=== PATIENT | male | born 1970 | race Caucasian/White ===

== ENCOUNTER 2019-03-05 13:33 | Emergency (ER) | payer BC ==
[2019-03-05] MEDS ORDERED: KETOROLAC 30 MG/ML VIAL IVP STA ×2 (13:42→14:02)
[2019-03-05] MEDS ORDERED: ONDANSETRON ODT 4 MG TABLET TL STA (13:42)
[2019-03-05] MEDS ORDERED: KETOROLAC 30 MG/ML VIAL IM STA (13:51)
[2019-03-05 14:03] LABS: BASOPHILS # (AUTO) 0.1 10^3/uL (0.0-0.1); BASOPHILS % (AUTO) 1.2 %; EOSINOPHILS # (AUTO) 0.5 10^3/uL (0.0-0.7); EOSINOPHILS % (AUTO) 6.1 %; LYMPHOCYTES # (AUTO) 2.9 10^3/uL (1.5-3.5); LYMPHOCYTES % (AUTO) 38.5 %; MEAN CORPUSCULAR HEMOGLOBIN 30.8 pg (27.0-31.0); MEAN CORPUSCULAR HGB CONC 34.2 g/dL (32.0-36.0); MEAN CORPUSCULAR VOLUME 90.2 fL (80.0-94.0); MEAN PLATELET VOLUME 10.2 fL (7.4-11.4); MONOCYTES # (AUTO) 0.6 10^3/uL (0.0-1.0); MONOCYTES % (AUTO) 7.5 %; NEUTROPHILS # (AUTO) 3.5 10^3/uL (1.5-6.6); NEUTROPHILS % (AUTO) 46.4 %; PLT - PLATELET COUNT 216 10^3/uL (130-450); RED BLOOD COUNT 5.19 10^6/uL (4.70-6.10); RED CELL DISTRIBUTION WIDTH 12.3 % (12.0-15.0); WHITE BLOOD COUNT 7.5 x10^3/uL (4.8-10.8)
[2019-03-05] MEDS ORDERED: HYDROmorphone 1 MG/ML CARPUJECT IVP STA (14:10)
[2019-03-05] MEDS ORDERED: SODIUM CHLORIDE 0.9% 1,000 ML IV ONE (14:10)
[2019-03-05 14:24] LABS: CREATININE 1.1 mg/dL (0.6-1.2)
[2019-03-05 14:25] LABS: ALBUMIN 4.8 g/dL (3.2-5.5); ALBUMIN/GLOBULIN RATIO 1.5 (1.0-2.2); BILIRUBIN,TOTAL 2.3 mg/dL (0.2-1.0); CALCIUM 9.6 mg/dL (8.5-10.3)
--- NOTE | 2019-03-05 14:45 | CT Report ---
Reason: RUQ/RLQ pain Procedure Date: 03/05/2019 Accession Number: [id number] / [id number] Procedure: CT - Abdomen/Pelvis WO CPT Code: FULL RESULT: EXAM: CT ABDOMEN AND PELVIS EXAM DATE: 03/05/2019 02:06 PM. CLINICAL HISTORY: RUQ/RLQ pain. COMPARISONS: None. TECHNIQUE: Routine axial helical CT imaging was performed through the abdomen and pelvis without IV contrast. Reconstructions: Coronal and sagittal. In accordance with CT protocol optimization, one or more of the following dose reduction techniques were utilized for this exam: automated exposure control, adjustment of mA and/or KV based on patient size, or use of iterative reconstructive technique. FINDINGS: Lung Bases: Unremarkable. Right Kidney/Ureter: There is mild right hydronephrosis, hydroureter, and perinephric stranding secondary to a 0.3 cm stone within the low right ureter. Left Kidney/Ureter: No stones, hydronephrosis, or hydroureter. No perinephric fat stranding. Other Solid Organs: Noncontrast images of the solid organs are grossly unremarkable. Gallbladder/Bile Ducts: Unremarkable. Peritoneal Cavity: No free fluid, free air or bere adenopathy. Bowel is grossly unremarkable. Pelvic Organs: No bladder stones or wall thickening. Noncontrast images of the visualized pelvic organs are unremarkable. Vasculature: Unremarkable. Other: None. IMPRESSION: There is mild right hydronephrosis, hydroureter, and perinephric stranding secondary to a 0.3 cm stone within the low right ureter. RADIA
--- NOTE | 2019-03-05 15:11 | ED Physician Documentation ---
PD HPI ABD PAIN - Stated complaint Stated Complaint: ABD PX - Chief complaint Chief Complaint: Abd Pain - History obtained from History obtained from: Patient, Family - History of Present Illness Timing - onset: Yesterday Timing - duration: Days (1) Timing - details: Abrupt onset Severity Comments: severe right flank pain Quality: Sharp Location: RUQ, RLQ, Other (right flank) Radiation: Other (right groin), Upper back Improved by: Other (nothing) Worsened by: Other (nothing, pt can't get comfortable) Associated symptoms: Nausea, Vomiting. No: Fever, Hematemesis, Diarrhea, Constipation, Melena, Hematochezia, Dysuria, Hematuria Similar symptoms before: Has not had sx before Recently seen: Not recently seen - Treatment prior to arrival Treatment prior to arrival: none - Additional information Additional information: Yesterday the pain came and went on its own after a sudden sharp brief pain had occurred in his RUQ Review of Systems Ten Systems: 10 systems reviewed and negative Constitutional: denies: Fever, Chills Cardiac: denies: Chest pain / pressure Respiratory: denies: Dyspnea GI: reports: Abdominal Pain, Nausea, Vomiting : denies: Dysuria, Frequency, Hematuria Skin: reports: Reviewed and negative Musculoskeletal: reports: Reviewed and negative Immunocompromised: reports: Reviewed and negative PD PAST MEDICAL HISTORY - Past Medical History Past Medical History: No - Past Surgical History Past Surgical History: Yes General: Appendectomy - Present Medications Home Medications: Ambulatory Orders Medication Instructions Recorded Confirmed Hydrocodone/Acetaminophen 1 - 2 each PO Q6H PRN #12 tablet 03/05/19 [Hydrocodon-Acetaminophen 5-325] Ondansetron Odt [Zofran] 4 mg TL Q6H PRN #10 tablet 03/05/19 - Allergies Allergies/Adverse Reactions: Allergies Allergy/AdvReac Type Severity Reaction Status Date / Time No Known Drug Allergies Allergy Verified 03/05/19 13:41 - Social History Does the pt smoke?: No Smoking Status: Never smoker Does the pt drink ETOH?: Yes Does the pt have substance abuse?: No - Immunizations Immunizations are current?: Yes - POLST Patient has POLST: No PD ED PE NORMAL - Vitals Vital signs reviewed: Yes - General General: Alert and oriented X 3, Other (moderate distress, writhing in bed) - HEENT HEENT: Atraumatic - Neck Neck: Supple, no meningeal sign - Cardiac Cardiac: RRR - Respiratory Respiratory: No respiratory distress - Abdomen Abdomen: Soft, Non tender, Non distended - Male Male : Deferred - Rectal Rectal: Deferred - Derm Derm: Normal color, Warm and dry, No rash - Extremities Extremities: No edema - Neuro Neuro: Alert and oriented X 3 Eye Opening: Spontaneous Motor: Obeys Commands Verbal: Oriented GCS Score: 15 - Psych Psych: Normal mood, Normal affect Results - Vitals Vitals: Vital Signs - 24 hr 03/05/19 03/05/19 13:37 15:43 Temperature 36.0 C L Heart Rate 71 74 Respiratory 19 14 Rate Blood Pressure 158/86 H 148/80 H O2 Saturation 100 100 Oxygen O2 Source Room air - Labs Labs: Laboratory Tests 03/05/19 03/05/19 13:59 13:59 WBC 7.5 RBC 5.19 Hgb 16.0 Hct 46.8 MCV 90.2 MCH 30.8 MCHC 34.2 RDW 12.3 Plt Count 216 MPV 10.2 Neut # (Auto) 3.5 Lymph # (Auto) 2.9 Ponce # (Auto) 0.6 Eos # (Auto) 0.5 Baso # (Auto) 0.1 Absolute Nucleated RBC 0.00 Nucleated RBC % 0.0 Sodium 142 Potassium 3.8 Chloride 102 Carbon Dioxide 25 Anion Gap 15.0 H BUN 18 Creatinine 1.1 Estimated GFR (MDRD) 71 L Glucose 122 H Calcium 9.6 Total Bilirubin 2.3 H AST 20 ALT 24 Alkaline Phosphatase 64 Total Protein 8.0 Albumin 4.8 Globulin 3.2 Albumin/Globulin Ratio 1.5 mildly elevated glucose, bilirubin and AG otherwise normal, - Rads (name of study) CT abdomen/pelvis without contrast Radiology: Final report received, See rad report (R 0.3cm ureteral stone with hydronephrosis) Procedures - Bedside sono Bedside sono by EMP: Kidneys - L side normal, R mild hydronephrosis RUQ - normal appearing gallbladder, no gallstones PD MEDICAL DECISION MAKING - ED course Complexity details: reviewed results, re-evaluated patient, considered differential, d/w patient, d/w family ED course: ddx- kidney stone, pyelonephritis, gallstone, gastritis, AAA 49 y/o M with a R sided ureteral stone w/ mild hydronephrosis 0.3cm thus likely to pass on its own. Did not provide a urine sample to test but has normal renal function, and no infectious symptoms thus feel this is ok. Pt given adequate oral analgesics and antiemetics and is stable for outpt f/u. Departure - Departure Disposition: 01 Home, Self Care Clinical Impression: Ureteral calculus, right, Acute pelvic inflammatory disease Condition: Stable Record reviewed to determine appropriate education?: Yes Instructions: ED Stone Renal W Colic Follow-Up: your, doctor [Other] Prescriptions: Hydrocodone/Acetaminophen [Hydrocodon-Acetaminophen 5-325] 1 - 2 each PO Q6H PRN #12 tablet PRN Reason: pain Ondansetron Odt [Zofran] 4 mg TL Q6H PRN #10 tablet PRN Reason: Nausea / Vomiting Discharge Date/Time: 03/05/19 15:45
[2019-03-05] MEDS ORDERED: HYDROcod/ACETAM 5/325 MG TABLET PO STA (15:29)
[2019-03-05 15:44] VITALS: BP 148/80
== END 2019-03-05 15:45 | disposition home or self-care (01) ==
LOC: ED 13:33
DX: N13.2 Hydronephrosis with renal and ureteral calculous obstruction (principal)
CPT/HCPCS: 36415; 74176; 80053; 85025; 96361; 96374; 96375; 99284; A9270; J1170; Q0162; 80048

== ENCOUNTER 2020-10-07 07:44 | Outpatient (CLI) | payer BC, OTHER ==
--- NOTE | 2020-10-07 12:03 | XRAY Report ---
PROCEDURE: Cervical Spine Complete INDICATIONS: NECK PAIN TECHNIQUE: 5 view(s) of the cervical spine were acquired. COMPARISON: X-ray cervical spine, 12/12/2016. FINDINGS: Bones: No fractures or dislocations to the C6 level. The lateral masses of C1 appear intact on the odontoid view. No suspicious bony lesions. There is moderate degenerative disc disease at C5-C6 and C6-C7. Moderate bilateral facet arthropathy at C3-C4, C4-C5 and C5-C6. There is [id number] giovanni ateral stenosis at C3-C4 and C4-C5. Soft tissues: No prevertebral soft tissue swelling. IMPRESSION: 1. Degenerative disc and facet disease of the cervical spine as described. 2. 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 Reviewed by: Perez Leal MD on 10/07/2020 12:01 PM PST Approved by: Perez Leal MD on 10/07/2020 12:01 PM PST Station ID: [id number]
== END 2020-10-07 23:59 | disposition home or self-care (01) ==
LOC: DI.N 07:44
PROVIDERS: ATTEND Nurse Practitioner
DX: M50.30 Other cervical disc degeneration, unspecified cervical region (principal); M48.02 Spinal stenosis, cervical region